=== PATIENT | male | born 1955 | race Caucasian/White ===

== ENCOUNTER 2021-10-28 07:21 | Day surgery (SDC) | payer MEDICARE, SELFPAY ==
[2021-10-28 08:02] VITALS: BP 139/88; PULSE 53; RESP 16; TEMP 36.7; O2SAT 97
[2021-10-28] MEDS: Tropicam./Phenyleph. (1/2.5%) 5 ML BTL OS ×3 (08:13→08:23)
--- NOTE | 2021-10-28 08:47 | W.ANESPRE ---
General Info Date of Service Date Performed: 10/28/21 Height: 5 ft 10 in Weight: 89.1 kg Body Mass Index (BMI): 28.1 Surgical Procedure: Operation Date: 10/28/21 09:40 Proposed Procedure Side Surgeon p Cataract Extraction with IOL Implant Left Frandy Mcdermott MD Meds Allergies and Home Medications Allergies Allergy/AdvReac Type Severity Reaction Status Date / Time No Known Allergies Allergy Verified 10/28/21 08:00 Home Medication Medication Instructions Recorded albuterol sulfate 90 mcg/actuation 2 puff INHALATION DIRECTED 10/26/21 aerosol inhaler aspirin 81 mg tablet,delayed 81 mg PO DAILY 10/26/21 release atorvastatin 10 mg tablet 10 mg PO DAILY 10/26/21 omega-3 fatty acids 1 cap PO DAILY 10/26/21 omeprazole 20 mg capsule,delayed 20 mg PO DAILY 10/26/21 release vit 1 tab PO DAILY 10/26/21 [id number] 500 mg-50 mg-25 mg-40 mg tablet (Bioflex) Current Visit Medications: Current Medications Generic Name Dose Route Start Last Admin Trade Name Freq PRN Reason Stop Dose Admin Acetaminophen 1,000 mg 10/28/21 06:00 Acetaminophen 500 Mg Tab PO Q4H PRN PRN Miscellaneous Medication 0 ml 10/28/21 06:00 Prednisolone 1%, Moxifloxacin 0.5%, Nepafenac 0.1% 5ml Btl OS DIRECTED KEVIN Miscellaneous Medication 0 ml 10/28/21 06:00 10/28/21 08:23 Tropicam./Phenyleph. (1/2.5%) 5 Ml Btl OS 1 drp DIRECTED KEVIN Administration Tetracaine HCl 0 ml 10/28/21 06:00 Tetracaine 0.5% 4 Ml Btl OS DIRECTED KEVIN PFSH Active Problems Active Problems: Problem Status Onset Code Nuclear sclerotic cataract of left eye H25.12 Cortical cataract of left eye H26.9 Posterior subcapsular age-related cataract of left eye H25.042 Medical History Medical History (Updated 10/28/21 @ 08:00 by Jeffery Miller) Acute lung injury Barretts esophagus Bronchospasm Cyst of left kidney SILVA (dyspnea on exertion) Elevated blood pressure reading in office with diagnosis of hypertension Esophagitis Heart murmur pt. states he had this worked up 08/2021 and everything was negative HLD (hyperlipidemia) Hx of renal calculi Migraine with aura RAD (reactive airway disease) Tobacco Smoking/Tobacco Use Status: Former Tobacco Use Alcohol Alcohol Intake: current Alcohol intake frequency: a few times a week Substance Use Substance use: Never Substance use type: does not use Vital Signs and Lab Results Vital Signs Most Recent Vital Signs in EMR: Most Recent Vital Signs Temp Pulse Resp BP Pulse Ox 36.7 C 53 L 16 139/88 97 10/28/21 08:02 10/28/21 08:02 10/28/21 08:02 10/28/21 08:02 10/28/21 08:02 Lab Results Blood Type / Crossmatch: No Data to Display Complete Blood Count: No Data to Display Complete Metabolic Panel: No Data to Display Liver Function Panel: No Data to Display Coagulation Panel: No Data to Display Cardiac Panel: No Data to Display Arterial Blood Gas: No Data to Display Venous Blood Gas: No Data to Display Pancreas Panel: No Data to Display Thyroid Panel: No Data to Display Infectious Disease: No Data to Display Blood Cultures: No Data to Display Toxicology Panel: No Data to Display Anesthesia Assessment and Plan Anesthesia History Personal History: No History of Anesthesia Complications Family History: No Family History of Anesthesia Complications Exercise Tolerance Exercise Tolerance: Metabolic Equivalents>4 Pertinent Negatives Pertinent Negatives: No Symptoms of GERD Cardiac & Pulmonary Exam Cardiac Exam: Normal S1/S2 Heart Sounds Pulmonary Exam: Clear Bilateral Breath Sounds Implantable Cardiac Device Does patient have a Pacemaker or an ICD?: No Airway Exam Known Difficult Airway: No Mallampati Class: 2 Mouth Opening: Normal (> 3cm) Thyromental Distance: Greater than 3 cm Neck Range of Motion: Full ROM Neck Circumference: Normal Teeth Condition: Normal Dentition ASA Classification ASA Score: ASA 2 Emergency Case?: No NPO Status NPO Status: NPO Clears >2 hours, Solids >8 hours Anesthesia Plan Resuscitation Status: Full Code Anesthesia Technique: MAC Anesthesia Airway Planned: Natural Airway Monitors Used: Standard Monitors
[2021-10-28 08:49] VITALS: BMI 28.1
[2021-10-28] MEDS: Tetracaine 0.5% 4 ML BTL OS (09:18)
[2021-10-28] MEDS: Duovisc Viscoelastic System EACH 1 EACH (09:18)
[2021-10-28] MEDS: Balanced Salt Soln.-PLUS 500 ML BAG (09:18)
[2021-10-28] MEDS: Lidocaine 2% Jelly 6 ML SYR (09:20)
[2021-10-28] MEDS: Povidone-Iodine Ophth 30 ML BTL (09:21)
[2021-10-28] MEDS: Trypan Blue 0.06% 0.5 ML SYR (09:21)
[2021-10-28 09:32] VITALS: BP 111/79; PULSE 58; RESP 16; TEMP 36.3; O2SAT 96
--- NOTE | 2021-10-28 09:34 | W.PM.DSUDISC ---
Discharge Plan Disposition Patient Disposition: HOME Condition: Good Discharge Details Attending Provider: Frandy Mcdermott Primary Care Provider: Beata Hernandez Home Meds and New Rx's Prescriptions: No Action atorvastatin 10 mg Tablet 10 mg PO DAILY 0RF aspirin [Aspir-81] 81 mg Tablet,Delayed Release (Dr/Ec) 81 mg PO DAILY 0RF omeprazole 20 mg Capsule,Delayed Release(Dr/Ec) 20 mg PO DAILY 0RF albuterol sulfate 90 mcg/actuation Hfa Aerosol Inhaler 2 puff INHALATION DIRECTED 0RF Fish Oil Capsule 1 cap PO DAILY 0RF Bioflex [id number] mg Tablet 1 tab PO DAILY 0RF Discharge Instructions Stand Alone Forms: Post-op Topical Cataract, Scotty Duarte (DSU) Discharge Orders Discharge Orders: Discharge Order (Routine); Ordered 10/28/21 Ordered By: Frandy Mcdermott DS: Diagnosis Discharge Diagnosis (1) Nuclear sclerotic cataract of left eye: Status: Resolved (2) Cortical cataract of left eye: Status: Resolved (3) Posterior subcapsular age-related cataract of left eye: Status: Resolved
--- NOTE | 2021-10-28 09:34 | W.PM.OP ---
Date of service: 10/28/21 Time of Service: 09:35 Operative Note Operative Note DATE OF PROCEDURE: 10/28/21 PRE-OP DIAGNOSIS: Nuclear/cortical/posterior subcapsular cataract, left eye Poor red reflex, left eye secondary to cataract POST-OP DIAGNOSIS: same PROCEDURE: Cataract extraction using phacoemulsification with intraocular lens implant, left eye, using capsular staining with Vision Blue SURGEON: Frandy Mcdermott ANESTHESIA TYPE: Local By Surgeon and MAC Refer to Anesthesia Record COMPLICATIONS: None Patient was transported to: same day Patient's condition: stable Implants: [employer] / [employer] Tecnis [id number] Indications: Progressive decreased vision due to cataract, left eye, with poor red reflex Procedure Description: CATARACT SURGERY OPERATIVE REPORT PREOPERATIVE DIAGNOSIS: 1. Nuclear/cortical/posterior subcapsular cataract, left eye 2. Poor red reflex secondary to #1 POSTOPERATIVE DIAGNOSIS: Same OPERATION: 1. Cataract extraction using phacoemulsification with posterior chamber intraocular lens implant, left eye. 2. Capsular staining with Vision Blue IOL: IOL Automatic Log Cut Off Sawyer/Model: [employer] Douglas / NARENDRA Tecnis [id number] IOL Power: + 21.5 diopters IOL Serial Number: [id number] Optic Diameter: 6.0 mm Haptic/Overall Diameter: 13.0 mm PHACO INFO: [employer] System[employer] Vision System with OZil and Active Fluidics Cumulative Dispersed Energy (CDE): 13.05 seconds SURGEON: Frandy Mcdermott MD, KRISHAN ANESTHESIA: Monitored A [facility] Care (MAC), with local sub-tenon's anesthetic infiltration COMPLICATIONS: None SPECIMENS: None INDICATIONS FOR PROCEDURE: The patient is a 65-year-old gentleman with history of diminished visual acuity in his left eye secondary to the development of significant nuclear/cortical/posterior subcapsular cataract. Vision is reduced to the 20/200 level due to the presence of cataract. The option of cataract surgery was offered to the patient and he felt he was symptomatic enough that he wished to proceed. PROCEDURE: The correct surgical eye was identified and marked as the left eye and the pupil was dilated in the preoperative area using mydriatics and cycloplegics. The dilated pupil size was 7.0 mm. Oral sedation was administered in the form of an Imprimis MKO Melt (midazolam 3mg/ketamine 25mg/ondansetron 2mg). The patient was brought to the operating room where cardiopulmonary monitoring was instituted and surgical time-out was performed, confirming the correct operative eye and IOL power. Topical anesthesia was administered and ophthalmic povidone-iodine 5% was instilled into the conjunctival fornices. Lidocaine gel was applied to the cornea and the dick-ocular area was prepped with Betadine 10% solution and draped in the usual sterile fashion for intraocular surgery, including an aperture drape. A Tegaderm transparent film dressing was cut in half and used to cover the lashes and lid margins. Care was taken to sequester the lashes and lid margins under the Tegaderm dressing. A lid speculum was placed between the lids of the operative eye and the George [employer] Rev[employer] operating microscope was maneuvered into position. Lenora scissors were then used to make a conjunctival buttonhole approximately 6mm posterior to the limbus in the inferonasal quadrant. Blunt dissection was carried out to expose bare sclera, and a blunt-tipped sub-tenon?s anesthesia cannula was introduced and passed posteriorly along the globe where non-preserved plain lidocaine was injected into posterior sub-Tenon?s space. A sideport knife was used to make a paracentesis port superiorly/superiortemporally. Intraocular phenylephrine/lidocaine was injected int the anterior chamber.. Air was then injected into the anterior chamber, followed by Vision Blue, which was painted over the anterior capsule and then irrigated out using BSS. The anterior chamber was filled with viscoelastic. A 2.4mm keratome knife was used to create a half-thickness groove at the limbus and then to construct a three-plane near-clear corneal tunnel extending 2.0mm into clear cornea at the 3:00 position. A flap was raised on the anterior capsule and capsulorhexis forceps were used to complete a continuous curvilinear capsulorhexis of 5.0 mm. Balanced salt solution was then used to perform cortical cleaving hydrodissection and nuclear hydrodelineation until the lens could be freely rotated within the capsular bag. The lens nucleus was then disassembled and removed within the capsular bag and iris plane using phacoemulsification. Residual cortical material was removed using the 45-degree angled silicone I/A tip with 0.3mm port. The posterior capsule was carefully polished to remove as much residual lens epithelial cells as safely possible. The capsular bag was then inflated and the anterior chamber deepened with viscoelastic. The lens implant described above was inserted into the capsular bag using the NARENDRA [place] Injector. A Kuglen hook was used to dial the IOL into position. Residual viscoelastic was then removed first from posterior to the IOL, then from the anterior chamber using the I/A handpiece. The lens implant was noted to center nicely within the capsular bag. The incisions were stromally hydrated, and the anterior chamber was reformed using BSS. Then 0.5cc of moxifloxacin 1.0mg/ml were injected into the capsular bag and anterior chamber. The incisions were checked with a Weck spear and found to be secure. Several drops of ophthalmic povidone-iodine 5% were then applied to the eye followed by two drops of Imprimis combination prednisolone/moxifloxacin/nepafenac solution. The drapes were removed and a clear plastic protective eye shield was placed over the eye. The patient was then returned to Same Day Surgery in stable condition.
[2021-10-28 09:56] VITALS: BP 133/79; PULSE 55; RESP 16; TEMP 36.2; O2SAT 95
--- NOTE | 2021-10-28 10:00 | W.ANESPOSTOP ---
Postoperative Evaluation Date, Time and Location Date Performed: 10/28/21 Time Performed: 19:48 Patient Location: Day Surgery Unit Vital Signs Most Recent Imported Vital Signs: Most Recent Vital Signs Temp Pulse Resp BP Pulse Ox 36.2 C L 55 L 16 133/79 95 10/28/21 09:56 10/28/21 09:56 10/28/21 09:56 10/28/21 09:56 10/28/21 09:56 Pain Score Most Recent Pain Score: Most Recent Pain Score Pain Level 0 10/28/21 09:56 Assessment Mental Status: Awake (Alert & Oriented to Patient Baseline) Airway and Respiratory Function: Patent airway with normal (patient baseline) respiratory exam Cardiovascular Function: Hemodynamically Stable Hydration Status: Adequately Hydrated Nausea & Vomiting: No Nausea or Vomiting Pain: Pt. Denies Any Pain Peripheral Nerve Block: Patient did not receive a nerve block
== END 2021-10-28 10:00 | disposition home or self-care (01) ==
PROVIDERS: PCP Internal Medicine; Visit Provider Ophthalmology
PROC: (CPT 66984; principal; 2021-10-28 09:30)
DX: H25.12 Age-related nuclear cataract, left eye (principal); J45.909 Unspecified asthma, uncomplicated; K22.70 Barrett's esophagus without dysplasia; E78.5 Hyperlipidemia, unspecified
CPT/HCPCS: 66984; V2632